=== PATIENT | male | born 1945 | race Caucasian/White ===

== ENCOUNTER → 2019-11-05 14:28 | Outpatient (CLI) | payer MEDICARE, OTHER, SELFPAY ==
[2019-11-05 15:52] LABS: Prostate Specific Ag, Diagnost 1.11 ng/mL (0.0-4.0)
== END ==
PROVIDERS: Visit Provider Urology
DX: N40.0 Benign prostatic hyperplasia without lower urinary tract symptoms (principal)
CPT/HCPCS: 36415; 84153

== ENCOUNTER → 2020-11-10 13:46 | Outpatient (CLI) | payer MEDICARE, OTHER, SELFPAY ==
[2020-11-10 15:06] LABS: Prostate Specific Ag Screen 1.2 ng/ml (0.0-4.0)
== END ==
PROVIDERS: Visit Provider Urology
DX: Z12.5 Encounter for screening for malignant neoplasm of prostate (principal)
CPT/HCPCS: 36415; G0103

== ENCOUNTER → 2021-11-10 13:54 | Outpatient (CLI) | payer MEDICARE, OTHER, SELFPAY ==
[2021-11-10 15:41] LABS: Prostate Specific Ag, Diagnost 1.13 ng/ml (0.0-4.0)
== END ==
PROVIDERS: Visit Provider Urology
DX: N40.0 Benign prostatic hyperplasia without lower urinary tract symptoms (principal)
CPT/HCPCS: 36415; 84153